=== PATIENT | male | born 1955 | race Caucasian/White ===

== ENCOUNTER 2022-04-22 08:30 | Observation (INO) | payer MEDICARE ==
[2022-04-22] MEDS: Sodium Chloride 0.9% 1000 ML 1,000 ML IV SCH ×2 (08:58→15:14)
[2022-04-22 09:12] LABS: Absolute Neutrophil Ct (ANC) 7.47 x10^3/uL (1.4-6.9); Basophil (Absolute #) 0.04 x10^3/uL (0-0.4); Eosinophil % 0.8 % (0.00-5.0); Eosinophil (Absolute #) 0.08 x10^3/uL (0-0.5); Hematocrit 44.9 % (42-50); Hemoglobin 14.5 g/dL (12.5-18.0); Lymphocyte (Absolute #) 1.65 x10^3/uL (1.0-4.6); Lymphocytes % 16.5 % (24.0-44.0); Mean Cell Volume 95.1 fL (78-100); Mean Corpuscular Hemoglobin 30.7 pg (26-32); Mean Corpuscular Hgb Concent. 32.3 g/dL (32-36); Mean Platelet Volume 8.5 fL (7.5-11.0); Monocyte (Absolute #) 0.66 x10^3/uL (0.0-1.3); Monocytes % 6.6 % (0.0-12.0); Neutrophil % 74.8 % (36.0-66.0); Platelet Count 302 x10^3/uL (150-450); Red Blood Count 4.72 x10^6/uL (4.1-5.6); Red Cell Distribution Width 13.1 % (11.5-14.0)
[2022-04-22 09:22] LABS: D-DIMER QUANTITATIVE 0.3 mg/L (0.0-0.50); INR 4.48 (0.8-3.0); PROTIME 41.4 SECONDS (9.4-12.5); PTT 40.5 SECONDS (25.1-36.5)
[2022-04-22 09:31] LABS: NT PRO BNP 61.7 pg/mL (0-900)
[2022-04-22 09:35] LABS: ALBUMIN 3.7 g/dL (3.5-5.0); ALKALINE PHOSPHATASE 116 U/L (38-126); BLOOD UREA NITROGEN 19 mg/dL (9-20); CHLORIDE 103 mmol/L (98-107); Calcium 8.3 mg/dL (8.4-10.2); Carbon Dioxide 29 mmol/L (22-30); Creatinine 1 0.84 mg/dL (0.66-1.25); EST GLOMERULAR FILTRATION RATE > 60.0 ML/MIN; Glucose 99 mg/dL (74-106); Potassium 3.6 mmol/L (3.5-5.1); SGOT/AST 45 U/L (17-59); SGPT/ALT 39 U/L (0-50); SODIUM 137 mmol/L (137-145); Total Protein 6.7 g/dL (6.3-8.2)
[2022-04-22 09:38] LABS: ANION GAP 8.6 MEQ/L (5-15)
[2022-04-22 10:29] LABS: INFLUENZA A NEGATIVE (NEGATIVE); INFLUENZA B NEGATIVE (NEGATIVE); RESPIRATORY SYNCTIAL VIRUS NEGATIVE (Negative); SARS-CoV-2 Xpert Express NEGATIVE (NEGATIVE)
[2022-04-22 10:30] LABS: CK-Creatinine Phosphokinase 110 U/L (55-170)
--- NOTE | 2022-04-22 10:33 | XRAY ---
Indication: Pleuritic chest pain and productive cough 3 weeks. Short of breath. Multiple contiguous axial images obtained through the chest using 100 cc Isovue 370 contrast and PE protocol. Comparison: None Good opacification of the pulmonary arteries to include the lobar and segmental branches. No pulmonary embolus. Heart is not enlarged. Aorta minimally arteriosclerotic without aneurysm/dissection. Tiny subcarinal and left hilar calcified nodes. Lungs demonstrate right middle and right lower lobe infiltrates/atelectasis. 1 cm left costophrenic angle calcified granuloma. Upper lungs clear. Bony thorax intact with osteopenia and moderate degenerative changes throughout the spine. Limited upper abdomen demonstrates gastric bypass surgery. Impression: 1. Negative pulmonary embolus. 2. Right middle and right lower lobe infiltrates/atelectasis. 3. Incidental degenerative spondylosis, gastric bypass surgery, and old granulomatous disease.
--- NOTE | 2022-04-22 10:58 | ERPHSYRPT ---
- History of Present Illness Time Seen by Provider: 04/22/22 08:45 Historian: patient Exam Limitations: no limitations Patient Subjective Stated Complaint: PT HERE FOR SOB AND PAIN WITH A COUGH FOR 3 WEEKS NOW, HE STATES HE FELL ON RIGHT SIDE 5 WEEKS AGO ON A MOWER, ANS WAS NOT SEEN AT THAT TIME. WAS SEEN 2 WEEKS AGO AT [facility] AND LAST WEEK AT [facility] AND STATES HE IS NOT FEELING BETTER Triage Nursing Assessment: PT ALERT, WALKED IN, RESP EASY, CHEST WITH SCATTERED WHEEZES , HAS CONGESTED COUGH WITH DEEP BREATH,PRODUCTIVE COUGH WITH WHITE SPUTUM Physician History: Patient is a 67-year-old white male who presents with a complaint of shortness of breath and right-sided chest pain he is also had a very loose sounding cough producing copious amounts of white sputum. He fell approximately 5 weeks ago on a trailer hitch causing pain into the right chest since that time he has had increasing episodes of shortness of breath is been seen in the ER for 3 Mondays in a row. He was seen at the [place] [facility] on last Friday or 2 weeks ago and had blood test x-ray and eventually had a CT scan of the abdomen without contrast. He has severe cough and soreness to touch on the right chest. Timing/Duration: week(s) (5) Activities at Onset: none Quality: stabbing, throbbing Severity of Pain-Max: severe Severity of Pain-Current: moderate Modifying Factors: Improves With: breathing, coughing, palpation, change in position Associated Symptoms: shortness of breath, cough, hurts to breathe Prior Chest Pain/Cardiac Workup: pulmonary embolism Nitro Today/Relief: no nitro taken today Aspirin Treatment Today: no aspirin today Allergies/Adverse Reactions: Penicillins Allergy (Verified 04/22/22 08:56) Home Medications: Lisinopril 10 mg [Zestril 10 MG] 10 mg PO DAILY 04/22/22 [History] Prednisone [Lalito] 5 mg PO DAILY 04/22/22 [History] Warfarin Sodium 5 mg [Jantoven] 1 ea DAILY 04/22/22 [History] Hx Influenza Vaccination/Date Given: No Hx Pneumococcal Vaccination/Date Given: No Immunizations Up to Date: Yes Travel Risk - International Travel Have you traveled outside of the country in past 3 weeks: No - Coronavirus Screening Are you exhibiting any of the following symptoms?: No Close contact with a COVID-19 positive Pt in past 14-21 Days: No - Vaccine Status Have you recieved a Covid-19 vaccination: Yes [employer]: Moderna - Vaccination Dates Date of 2cond Vaccination (if applicable): 2020 - Review of Systems Constitutional: No Fever, No Chills Eyes: No Symptoms Ears, Nose, & Throat: No Symptoms Respiratory: Cough, Dyspnea Cardiac: Chest Pain, No Edema, No Syncope Abdominal/Gastrointestinal: No Abdominal Pain, No Nausea, No Vomiting, No Diarrhea Genitourinary Symptoms: No Dysuria Musculoskeletal: No Back Pain, No Neck Pain Skin: No Rash Neurological: No Dizziness, No Focal Weakness, No Sensory Changes Psychological: No Symptoms Endocrine: No Symptoms All Other Systems: Reviewed and Negative - Past Medical History Pertinent Past Medical History: Yes Cardiac History: Deep Vein Thrombosis, High Cholesterol - Past Surgical History Past Surgical History: Yes Other Surgical History: GASTRIC BYPASS - Social History Smoking Status: Never smoker Exposure to second hand smoke: No Drug Use: none Patient Lives Alone: No - Nursing Vital Signs Nursing Vital Signs: Initial Vital Signs Temperature 97.4 F 04/22/22 08:39 Pulse Rate 93 H 04/22/22 08:39 Respiratory Rate 16 04/22/22 08:39 Blood Pressure 145/87 04/22/22 08:39 O2 Sat by Pulse Oximetry 97 04/22/22 08:39 Pain Scale Pain Intensity 0 - Physical Exam General Appearance: mild distress, alert Eye Exam: PERRL/EOMI, eyes nml inspection Ears, Nose, Throat Exam: normal ENT inspection, moist mucous membranes Neck Exam: normal inspection, non-tender, supple, full range of motion Respiratory Exam: respiratory distress (Mild), diminished breath sounds (Right lower anterior and posterior chest), crackles/rales, rhonchi, wheezing Cardiovascular Exam: regular rate/rhythm, normal heart sounds Gastrointestinal/Abdomen Exam: soft, No tenderness, No mass Back Exam: normal inspection, No CVA tenderness, No vertebral tenderness Extremity Exam: normal inspection, normal range of motion Neurologic Exam: alert, oriented x 3, cooperative, normal mood/affect, sensation nml, No motor deficits Skin Exam: normal color, warm, dry SpO2 Interpretation: normal SpO2: 92 O2 Delivery: Room Air - Course Nursing assessment & vital signs reviewed: Yes EKG Interpreted by Me: RATE (74), Sinus Rhythm, Left [place] Deviation, NORMAL INTERVALS, NORMAL QRS, Non-specific ST Changes - CT Exams Chest CT Interpretation: Other (CT scan from the radiologist indicates right middle lobe and right lower lobe infiltrates.) Ordered Tests: Active Orders 24 hr Category Date Time Status Solvent Plant Treater STAT Care 04/22/22 08:41 Active EKG-ER Only STAT Care 04/22/22 08:40 Active CHEST WITH CONTRAST [CT] Stat Exams 04/22/22 10:02 Completed BLOOD CULTURE Stat Lab 04/22/22 09:00 Received CBC W DIFF Stat Lab 04/22/22 08:48 Completed CK-Creatinine Phosphokinase Stat Lab 04/22/22 08:48 Completed CMP Stat Lab 04/22/22 08:48 Completed CULTURE,SPUTUM Stat Lab 04/22/22 10:54 Ordered D-DIMER QUANTITATIVE Stat Lab 04/22/22 08:48 Completed Lactic Acid Stat Lab 04/22/22 08:50 Completed NT PRO BNP Stat Lab 04/22/22 08:48 Completed PROCALCITONIN Stat Lab 04/22/22 08:48 Completed PROTIME WITH INR Stat Lab 04/22/22 08:48 Completed PTT Stat Lab 04/22/22 08:48 Completed TROPONIN Q4H Lab 04/22/22 08:48 Completed TROPONIN Q4H Lab 04/22/22 12:45 Ordered TROPONIN Q4H Lab 04/22/22 16:45 Ordered UA W/RFX CULTURE Stat Lab 04/22/22 Ordered Flutter Therapy UD RT 04/22/22 10:59 Active Incentive Spirometry UD RT 04/22/22 11:00 Active Medication Summary Generic Name Dose Route Start Last Admin Trade Name Freq PRN Reason Stop Dose Admin Sodium Chloride 1,000 mls @ 100 mls/hr 04/22/22 08:45 04/22/22 08:58 Sodium Chloride 0.9% 1000 Ml IV 05/22/22 08:44 100 mls/hr .Q10H ROMERO Administration Azithromycin 500 mg in 250 mls @ 250 mls/hr 04/23/22 10:00 Zithromax 500 Mg/ 250 Ml Nacl Premix IV 05/23/22 09:59 Q24H10 ROMERO Ceftriaxone Sodium/Dextrose 1 g in 50 mls @ 100 mls/hr 04/23/22 10:00 Rocephin 1 Gm-D5w 50 Ml Bag IV 04/26/22 09:59 Q24H10 [facility] Lab/Rad Data: Laboratory Result Diagrams 04/22/22 08:48 04/22/22 08:48 Laboratory Results 04/22/22 04/22/22 04/22/22 Range/Units 08:50 08:48 08:48 WBC (4.0-10.5) x10^3/uL RBC (4.1-5.6) x10^6/uL Hgb (12.5-18.0) g/dL Hct (42-50) % MCV (78-100) fL MCH (26-32) pg MCHC (32-36) g/dL RDW (11.5-14.0) % Plt Count (150-450) x10^3/uL MPV (7.5-11.0) fL Gran % (36.0-66.0) % Immature Gran % (Auto) (0.00-0.4) % Nucleat RBC Rel Count (0.00-0.1) % Eos # (Auto) (0-0.5) x10^3/uL Immature Gran # (Auto) (0.00-0.03) x10^3u/L Absolute Lymphs (auto) (1.0-4.6) x10^3/uL Absolute Monos (auto) (0.0-1.3) x10^3/uL Absolute Nucleated RBC (0.00-0.01) x10^3u/L Lymphocytes % (24.0-44.0) % Monocytes % (0.0-12.0) % Eosinophils % (0.00-5.0) % Basophils % (0.0-0.4) % Absolute Granulocytes (1.4-6.9) x10^3/uL Basophils # (0-0.4) x10^3/uL PT (9.4-12.5) SECONDS INR (0.8-3.0) APTT (25.1-36.5) SECONDS D-Dimer (0.0-0.50) mg/L Sodium (137-145) mmol/L Potassium (3.5-5.1) mmol/L Chloride (98-107) mmol/L Carbon Dioxide (22-30) mmol/L Anion Gap (5-15) MEQ/L BUN (9-20) mg/dL Creatinine (0.66-1.25) mg/dL Estimated GFR ML/MIN Glucose (74-106) mg/dL Lactic Acid 1.6 (0.4-2.0) Calcium (8.4-10.2) mg/dL Total Bilirubin (0.2-1.3) mg/dL AST (17-59) U/L ALT (0-50) U/L Alkaline Phosphatase (38-126) U/L Creatine Kinase (55-170) U/L Troponin I < 0.012 (0.000-0.034) ng/mL NT-Pro-B Natriuret Pep (0-900) pg/mL Serum Total Protein (6.3-8.2) g/dL Albumin (3.5-5.0) g/dL Procalcitonin 0.053 (0.030-0.080) ng/mL 04/22/22 04/22/22 04/22/22 Range/Units 08:48 08:48 08:48 WBC 10.0 (4.0-10.5) x10^3/uL RBC 4.72 (4.1-5.6) x10^6/uL Hgb 14.5 (12.5-18.0) g/dL Hct 44.9 (42-50) % MCV 95.1 (78-100) fL MCH 30.7 (26-32) pg MCHC 32.3 (32-36) g/dL RDW 13.1 (11.5-14.0) % Plt Count 302 (150-450) x10^3/uL MPV 8.5 (7.5-11.0) fL Gran % 74.8 H (36.0-66.0) % Immature Gran % (Auto) 0.9 H (0.00-0.4) % Nucleat RBC Rel Count 0.0 (0.00-0.1) % Eos # (Auto) 0.08 (0-0.5) x10^3/uL Immature Gran # (Auto) 0.09 H (0.00-0.03) x10^3u/L Absolute Lymphs (auto) 1.65 (1.0-4.6) x10^3/uL Absolute Monos (auto) 0.66 (0.0-1.3) x10^3/uL Absolute Nucleated RBC 0.00 (0.00-0.01) x10^3u/L Lymphocytes % 16.5 L (24.0-44.0) % Monocytes % 6.6 (0.0-12.0) % Eosinophils % 0.8 (0.00-5.0) % Basophils % 0.4 (0.0-0.4) % Absolute Granulocytes 7.47 H (1.4-6.9) x10^3/uL Basophils # 0.04 (0-0.4) x10^3/uL PT 41.4 H (9.4-12.5) SECONDS INR 4.48 H (0.8-3.0) APTT 40.5 H (25.1-36.5) SECONDS D-Dimer 0.30 (0.0-0.50) mg/L Sodium 137 (137-145) mmol/L Potassium 3.6 (3.5-5.1) mmol/L Chloride 103 (98-107) mmol/L Carbon Dioxide 29 (22-30) mmol/L Anion Gap 8.6 (5-15) MEQ/L BUN 19 (9-20) mg/dL Creatinine 0.84 (0.66-1.25) mg/dL Estimated GFR > 60.0 ML/MIN Glucose 99 (74-106) mg/dL Lactic Acid (0.4-2.0) Calcium 8.3 L (8.4-10.2) mg/dL Total Bilirubin 0.80 (0.2-1.3) mg/dL AST 45 (17-59) U/L ALT 39 (0-50) U/L Alkaline Phosphatase 116 (38-126) U/L Creatine Kinase 110 (55-170) U/L Troponin I (0.000-0.034) ng/mL NT-Pro-B Natriuret Pep 61.7 (0-900) pg/mL Serum Total Protein 6.7 (6.3-8.2) g/dL Albumin 3.7 (3.5-5.0) g/dL Procalcitonin (0.030-0.080) ng/mL - Progress Progress: unchanged Air Movement: good Blood Culture(s) Obtained: Yes Antibiotics given: Yes Discussed with : Aurelio - Departure Departure Disposition: Observation Clinical Impression: Right middle lobe pulmonary infiltrate, Right lower lobe pulmonary infiltrate Condition: Fair Critical Care Time: No Referrals: JOVITA MEMBRENO Jr. [Primary Care Provider] - Follow up/PCP as directed
[2022-04-22] MEDS ORDERED: PERCOCET TABLET 5/325MG PO PRN (11:12)
[2022-04-22] MEDS ORDERED: ROCEPHIN 1 Gm-D5w 50 ml Bag** 1 G/50 ML IVPB IV ONE (11:14)
[2022-04-22] MEDS ORDERED: ROCEPHIN 1 Gm-D5w 50 ml Bag** 1 G/50 ML IVPB IV STA (11:14)
[2022-04-22] MEDS ORDERED: Zithromax 500 MG/ 250 ML NaCl Premix 500 MG/250 ML IVPB IV ONE ×2 (11:15)
[2022-04-22 11:25] LABS: Appearance CLEAR (CLEAR); Bilirubin NEGATIVE (NEGATIVE); Dipstick done @ ? MAIN LAB; Glucose NEGATIVE (NEGATIVE); Ketones NEGATIVE (NEGATIVE); Nitrite NEGATIVE (NEGATIVE); Ph 6.5 (5-6); Protein,Urine Dip NEGATIVE (Negative); RBC NEGATIVE Ery/ul (0-5); Specific Gravity 1.025 (1.005-1.025); Urobilinogen 1 mg/dL (0-1)
[2022-04-22 11:35] LABS: Mucus SLIGHT /HPF (NEGATIVE)
[2022-04-22 11:39] LABS: Urine Cultured Indicated? NO
[2022-04-22] MEDS ORDERED: PROVENTIL 2.5 MG/3 ML NEB IH PRN (12:48)
[2022-04-22] MEDS ORDERED: TYLENOL 325 MG PO PRN (13:51)
[2022-04-22] MEDS ORDERED: HUMALOG SQ PRN (13:52)
[2022-04-22] MEDS ORDERED: PROVENTIL 2.5 MG/3 ML NEB IH SCH (15:00)
[2022-04-22] MEDS: solu-MEDROL 80 MG, Sterile H2O 10 ml 2 ML IV SCH ×4 (15:14→21:04)
[2022-04-22] MEDS: Nicoderm CQ 21 MG TOP SCH (15:14)
[2022-04-22] MEDS: Mucinex 600MG ER Tabs PO SCH ×2 (15:15→21:04)
[2022-04-22] MEDS ORDERED: JANTOVEN PO SCH (18:00)
[2022-04-23] MEDS ORDERED: solu-MEDROL ONE (04:13)
[2022-04-23] MEDS: solu-MEDROL 80 MG, Sterile H2O 10 ml 2 ML IV SCH ×6 (05:05→23:48)
[2022-04-23 05:09] LABS: Hemoglobin 13.6 g/dL (12.5-18.0); Mean Cell Volume 94.4 fL (78-100); Mean Corpuscular Hemoglobin 30.6 pg (26-32); Mean Corpuscular Hgb Concent. 32.4 g/dL (32-36); Mean Platelet Volume 8.8 fL (7.5-11.0); Platelet Count 286 x10^3/uL (150-450); Red Blood Count 4.45 x10^6/uL (4.1-5.6); White Blood Count 9.3 x10^3/uL (4.0-10.5)
[2022-04-23 05:32] LABS: ALBUMIN 3.1 g/dL (3.5-5.0); ALKALINE PHOSPHATASE 101 U/L (38-126); ANION GAP 7.3 MEQ/L (5-15); BLOOD UREA NITROGEN 16 mg/dL (9-20); CHLORIDE 108 mmol/L (98-107); Calcium 7.9 mg/dL (8.4-10.2); Carbon Dioxide 24 mmol/L (22-30); Creatinine 1 0.58 mg/dL (0.66-1.25); EST GLOMERULAR FILTRATION RATE > 60.0 ML/MIN; Glucose 141 mg/dL (74-106); MAGNESIUM 2.1 mg/dL (1.6-2.3); SGOT/AST 24 U/L (17-59); SGPT/ALT 31 U/L (0-50); SODIUM 135 mmol/L (137-145); Total Protein 5.8 g/dL (6.3-8.2)
[2022-04-23 05:38] LABS: INR 3.93 (0.8-3.0); PROTIME 36.8 SECONDS (9.4-12.5)
--- NOTE | 2022-04-23 09:13 | PCM.HP ---
History of Present Illness - Chief Complaint Chief Complaint: PNEUMONIA History of Present Illness: is a 67 year old male patient of Dr Randall Wood who was evaluated in ER for cough and shortness of breath and diagnosed right sided pneumonia. Patient gives a Hx of tripping on hydrallic hose and falling on his koehler hog 3 weeks ago contusing his left rib cage.He was evaluated at least twice at other facility and reported no fracture or cardiac issue. He is admitted for treatment of pneumonia. PMHx includes HTN,Hx DVT,Arthritis S/P bilateral knee replacement,S/P bariatric surgery. - Review of Systems Constitutional: Fatigue Eyes: No Symptoms Ears, Nose, & Throat: No Symptoms Respiratory: Cough, Short Of Breath, Wheezing Cardiac: No Symptoms, Other (has left chest wall pain x 3 weeks since fall) Abdominal/Gastrointestinal: No Symptoms Genitourinary Symptoms: No Symptoms Musculoskeletal: Back Pain (left lateral lower rib cage pain), Fall (3 weeks ago) Skin: No Symptoms Neurological: No Symptoms Psychological: No Symptoms Endocrine: No Symptoms Hematologic/Lymphatic: No Symptoms Immunological/Allergic: No Symptoms Medications & Allergies Home Medications: Home Medication List Lisinopril 10 mg [Zestril 10 MG] 10 mg PO DAILY 04/22/22 [History Confirmed 04/22/22] Prednisone [Lalito] 10 mg PO DAILY 04/22/22 [History Confirmed 04/22/22] Warfarin Sodium 5 mg [Jantoven] 1 ea PO DAILY 04/22/22 [History Confirmed 04/22/22] Amox Tr/Potass Clav. 875 mg [Augmentin 875-125 Tablet] 875 mg PO BID 10 Days #20 tablet 04/24/22 [Rx] Azithromycin [Azithromycin 250 mg Pack] 250 mg PO UD #6 tablet 04/24/22 [Rx] Allergies/Adverse Reactions: Allergies Allergy/AdvReac Type Severity Reaction Status Date / Time Penicillins Allergy Verified 04/22/22 08:56 - Past Medical History Past Medical History: Yes Neurological History: No Pertinent History ENT History: No Pertinent History Cardiac History: Deep Vein Thrombosis, Hypertension Respiratory History: No Pertinent History Endocrine Medical History: No Pertinent History Musculoskelatal History: No Pertinent History GI Medical History: No Pertinent History History: No Pertinent History Pyscho-Social History: No Pertinent History Male Reproductive Disorders: No Pertinent History - Past Surgical History Past Surgical History: Yes Neuro Surgical History: No Pertinent History Cardiac History: No Pertinent History Respiratory Surgery: No Pertinent History GI Surgical History: No Pertinent History Genitourinary Surgical Hx: No Pertinent History Musculskeletal Surgical Hx: No Pertinent History Male Surgical History: No Pertinent History Other Surgical History: GASTRIC BYPASS IN 2004. BILATERAL KNEE REPLACEMENT IN 2005 - Social History Smoking Status: Never smoker Exposure to second hand smoke: No Alcohol: Weekly Drug Use: none - Physical Exam Vital Signs: Vital Signs - 24 hr Temp Pulse Resp BP Pulse Ox 04/23/22 07:39 97.9 F 62 16 100/51 96 04/23/22 06:45 61 16 94 L 04/23/22 04:00 96.7 F 57 L 16 135/65 95 04/23/22 00:00 97.3 F 69 16 126/70 90 L 04/22/22 20:09 83 18 93 L 04/22/22 19:00 97.3 F 93 H 17 104/56 93 L 04/22/22 16:00 98.1 F 66 16 134/67 96 04/22/22 12:49 65 16 96 04/22/22 12:18 98.0 F 68 16 150/80 94 L 04/22/22 12:12 98.0 F 68 16 150/80 94 L 04/22/22 11:06 98.0 F 68 16 150/80 94 L 04/22/22 11:05 92 L 04/22/22 11:03 63 13 137/64 95 04/22/22 10:37 74 20 137/64 92 L General Appearance: no apparent distress Neurologic Exam: alert, oriented x 3, cooperative (grouchy) Eye Exam: eyes nml inspection Ears, Nose, Throat Exam: normal ENT inspection Neck Exam: normal inspection Respiratory Exam: chest tenderness (left lateral rib cage), rhonchi, wheezing Cardiovascular Exam: regular rate/rhythm Gastrointestinal/Abdomen Exam: soft, normal bowel sounds (nontender) Rectal Exam: not done Back Exam: normal inspection Extremity Exam: normal inspection (scars bilat knees S/P knee replacement - remote) Skin Exam: normal color, warm, No dry Results - Labs Lab/Micro Results: Lab Results-Last 24 Hours 04/22/22 04/22/22 04/22/22 Range/Units 08:48 08:48 08:48 WBC 10.0 (4.0-10.5) x10^3/uL RBC 4.72 (4.1-5.6) x10^6/uL Hgb 14.5 (12.5-18.0) g/dL Hct 44.9 (42-50) % MCV 95.1 (78-100) fL MCH 30.7 (26-32) pg MCHC 32.3 (32-36) g/dL RDW 13.1 (11.5-14.0) % Plt Count 302 (150-450) x10^3/uL MPV 8.5 (7.5-11.0) fL Gran % 74.8 H (36.0-66.0) % Immature Gran % (Auto) 0.9 H (0.00-0.4) % Nucleat RBC Rel Count 0.0 (0.00-0.1) % Eos # (Auto) 0.08 (0-0.5) x10^3/uL Immature Gran # (Auto) 0.09 H (0.00-0.03) x10^3u/L Absolute Lymphs (auto) 1.65 (1.0-4.6) x10^3/uL Absolute Monos (auto) 0.66 (0.0-1.3) x10^3/uL Absolute Nucleated RBC 0.00 (0.00-0.01) x10^3u/L Lymphocytes % 16.5 L (24.0-44.0) % Monocytes % 6.6 (0.0-12.0) % Eosinophils % 0.8 (0.00-5.0) % Basophils % 0.4 (0.0-0.4) % Absolute Granulocytes 7.47 H (1.4-6.9) x10^3/uL Basophils # 0.04 (0-0.4) x10^3/uL PT 41.4 H (9.4-12.5) SECONDS INR 4.48 H (0.8-3.0) APTT 40.5 H (25.1-36.5) SECONDS D-Dimer 0.30 (0.0-0.50) mg/L Sodium 137 (137-145) mmol/L Potassium 3.6 (3.5-5.1) mmol/L Chloride 103 (98-107) mmol/L Carbon Dioxide 29 (22-30) mmol/L Anion Gap 8.6 (5-15) MEQ/L BUN 19 (9-20) mg/dL Creatinine 0.84 (0.66-1.25) mg/dL Estimated GFR > 60.0 ML/MIN Glucose 99 (74-106) mg/dL POC Glucometer (74 to 106) mg/dL Hemoglobin A1c (4.5-6.0) % Calcium 8.3 L (8.4-10.2) mg/dL Magnesium (1.6-2.3) mg/dL Total Bilirubin 0.80 (0.2-1.3) mg/dL AST 45 (17-59) U/L ALT 39 (0-50) U/L Alkaline Phosphatase 116 (38-126) U/L Creatine Kinase 110 (55-170) U/L Troponin I (0.000-0.034) ng/mL NT-Pro-B Natriuret Pep 61.7 (0-900) pg/mL Serum Total Protein 6.7 (6.3-8.2) g/dL Albumin 3.7 (3.5-5.0) g/dL Procalcitonin (0.030-0.080) ng/mL Urinalys Dipstick Clnc Urine Color (YELLOW) Urine Appearance (CLEAR) Urine pH (5-6) Ur Specific [place] (1.005-1.025) POC Urine Protein Conf (Negative) Urine Ketones (NEGATIVE) Urine Nitrite (NEGATIVE) Urine Bilirubin (NEGATIVE) Urine Urobilinogen (0-1) mg/dL Urine Leukocytes (NEGATIVE) Urine WBC (Auto) (0-5) /HPF Urine RBC (Auto) (0-2) /HPF U Epithel Cells (Auto) (FEW) /HPF Urine Bacteria (Auto) Urine RBC (0-5) Kamari/ul Urine Mucus (Auto) (NEGATIVE) /HPF Ur Culture Indicated? Urine Glucose (NEGATIVE) mg/dL Influenza Type A Ag (NEGATIVE) Influenza Type B Ag (NEGATIVE) RSV (PCR) (Negative) SARS-CoV-2 (PCR) (NEGATIVE) 04/22/22 04/22/22 04/22/22 Range/Units 08:48 08:48 09:42 WBC (4.0-10.5) x10^3/uL RBC (4.1-5.6) x10^6/uL Hgb (12.5-18.0) g/dL Hct (42-50) % MCV (78-100) fL MCH (26-32) pg MCHC (32-36) g/dL RDW (11.5-14.0) % Plt Count (150-450) x10^3/uL MPV (7.5-11.0) fL Gran % (36.0-66.0) % Immature Gran % (Auto) (0.00-0.4) % Nucleat RBC Rel Count (0.00-0.1) % Eos # (Auto) (0-0.5) x10^3/uL Immature Gran # (Auto) (0.00-0.03) x10^3u/L Absolute Lymphs (auto) (1.0-4.6) x10^3/uL Absolute Monos (auto) (0.0-1.3) x10^3/uL Absolute Nucleated RBC (0.00-0.01) x10^3u/L Lymphocytes % (24.0-44.0) % Monocytes % (0.0-12.0) % Eosinophils % (0.00-5.0) % Basophils % (0.0-0.4) % Absolute Granulocytes (1.4-6.9) x10^3/uL Basophils # (0-0.4) x10^3/uL PT (9.4-12.5) SECONDS INR (0.8-3.0) APTT (25.1-36.5) SECONDS D-Dimer (0.0-0.50) mg/L Sodium (137-145) mmol/L Potassium (3.5-5.1) mmol/L Chloride (98-107) mmol/L Carbon Dioxide (22-30) mmol/L Anion Gap (5-15) MEQ/L BUN (9-20) mg/dL Creatinine (0.66-1.25) mg/dL Estimated GFR ML/MIN Glucose (74-106) mg/dL POC Glucometer (74 to 106) mg/dL Hemoglobin A1c (4.5-6.0) % Calcium (8.4-10.2) mg/dL Magnesium (1.6-2.3) mg/dL Total Bilirubin (0.2-1.3) mg/dL AST (17-59) U/L ALT (0-50) U/L Alkaline Phosphatase (38-126) U/L Creatine Kinase (55-170) U/L Troponin I < 0.012 (0.000-0.034) ng/mL NT-Pro-B Natriuret Pep (0-900) pg/mL Serum Total Protein (6.3-8.2) g/dL Albumin (3.5-5.0) g/dL Procalcitonin 0.053 (0.030-0.080) ng/mL Urinalys Dipstick Clnc Urine Color (YELLOW) Urine Appearance (CLEAR) Urine pH (5-6) Ur Specific [place] (1.005-1.025) POC Urine Protein Conf (Negative) Urine Ketones (NEGATIVE) Urine Nitrite (NEGATIVE) Urine Bilirubin (NEGATIVE) Urine Urobilinogen (0-1) mg/dL Urine Leukocytes (NEGATIVE) Urine WBC (Auto) (0-5) /HPF Urine RBC (Auto) (0-2) /HPF U Epithel Cells (Auto) (FEW) /HPF Urine Bacteria (Auto) Urine RBC (0-5) Kamari/ul Urine Mucus (Auto) (NEGATIVE) /HPF Ur Culture Indicated? Urine Glucose (NEGATIVE) mg/dL Influenza Type A Ag NEGATIVE (NEGATIVE) Influenza Type B Ag NEGATIVE (NEGATIVE) RSV (PCR) NEGATIVE (Negative) SARS-CoV-2 (PCR) NEGATIVE (NEGATIVE) 04/22/22 04/22/22 04/22/22 Range/Units 11:18 12:45 16:10 WBC (4.0-10.5) x10^3/uL RBC (4.1-5.6) x10^6/uL Hgb (12.5-18.0) g/dL Hct (42-50) % MCV (78-100) fL MCH (26-32) pg MCHC (32-36) g/dL RDW (11.5-14.0) % Plt Count (150-450) x10^3/uL MPV (7.5-11.0) fL Gran % (36.0-66.0) % Immature Gran % (Auto) (0.00-0.4) % Nucleat RBC Rel Count (0.00-0.1) % Eos # (Auto) (0-0.5) x10^3/uL Immature Gran # (Auto) (0.00-0.03) x10^3u/L Absolute Lymphs (auto) (1.0-4.6) x10^3/uL Absolute Monos (auto) (0.0-1.3) x10^3/uL Absolute Nucleated RBC (0.00-0.01) x10^3u/L Lymphocytes % (24.0-44.0) % Monocytes % (0.0-12.0) % Eosinophils % (0.00-5.0) % Basophils % (0.0-0.4) % Absolute Granulocytes (1.4-6.9) x10^3/uL Basophils # (0-0.4) x10^3/uL PT (9.4-12.5) SECONDS INR (0.8-3.0) APTT (25.1-36.5) SECONDS D-Dimer (0.0-0.50) mg/L Sodium (137-145) mmol/L Potassium (3.5-5.1) mmol/L Chloride (98-107) mmol/L Carbon Dioxide (22-30) mmol/L Anion Gap (5-15) MEQ/L BUN (9-20) mg/dL Creatinine (0.66-1.25) mg/dL Estimated GFR ML/MIN Glucose (74-106) mg/dL POC Glucometer (74 to 106) mg/dL Hemoglobin A1c (4.5-6.0) % Calcium (8.4-10.2) mg/dL Magnesium (1.6-2.3) mg/dL Total Bilirubin (0.2-1.3) mg/dL AST (17-59) U/L ALT (0-50) U/L Alkaline Phosphatase (38-126) U/L Creatine Kinase (55-170) U/L Troponin I < 0.012 < 0.012 (0.000-0.034) ng/mL NT-Pro-B Natriuret Pep (0-900) pg/mL Serum Total Protein (6.3-8.2) g/dL Albumin (3.5-5.0) g/dL Procalcitonin (0.030-0.080) ng/mL Urinalys Dipstick Clnc MAIN LAB Urine Color YELLOW (YELLOW) Urine Appearance CLEAR (CLEAR) Urine pH 6.5 (5-6) Ur Specific [place] 1.025 (1.005-1.025) POC Urine Protein Conf NEGATIVE (Negative) Urine Ketones NEGATIVE (NEGATIVE) Urine Nitrite NEGATIVE (NEGATIVE) Urine Bilirubin NEGATIVE (NEGATIVE) Urine Urobilinogen 1 A (0-1) mg/dL Urine Leukocytes NEGATIVE (NEGATIVE) Urine WBC (Auto) NONE (0-5) /HPF Urine RBC (Auto) NONE (0-2) /HPF U Epithel Cells (Auto) NONE (FEW) /HPF Urine Bacteria (Auto) Not Reportable Urine RBC NEGATIVE (0-5) Kamari/ul Urine Mucus (Auto) SLIGHT A (NEGATIVE) /HPF Ur Culture Indicated? NO Urine Glucose NEGATIVE (NEGATIVE) mg/dL Influenza Type A Ag (NEGATIVE) Influenza Type B Ag (NEGATIVE) RSV (PCR) (Negative) SARS-CoV-2 (PCR) (NEGATIVE) 04/22/22 04/22/22 04/23/22 Range/Units 16:43 21:25 04:10 WBC 9.3 (4.0-10.5) x10^3/uL RBC 4.45 (4.1-5.6) x10^6/uL Hgb 13.6 (12.5-18.0) g/dL Hct 42.0 (42-50) % MCV 94.4 (78-100) fL MCH 30.6 (26-32) pg MCHC 32.4 (32-36) g/dL RDW 13.0 (11.5-14.0) % Plt Count 286 (150-450) x10^3/uL MPV 8.8 (7.5-11.0) fL Gran % (36.0-66.0) % Immature Gran % (Auto) (0.00-0.4) % Nucleat RBC Rel Count (0.00-0.1) % Eos # (Auto) (0-0.5) x10^3/uL Immature Gran # (Auto) (0.00-0.03) x10^3u/L Absolute Lymphs (auto) (1.0-4.6) x10^3/uL Absolute Monos (auto) (0.0-1.3) x10^3/uL Absolute Nucleated RBC (0.00-0.01) x10^3u/L Lymphocytes % (24.0-44.0) % Monocytes % (0.0-12.0) % Eosinophils % (0.00-5.0) % Basophils % (0.0-0.4) % Absolute Granulocytes (1.4-6.9) x10^3/uL Basophils # (0-0.4) x10^3/uL PT (9.4-12.5) SECONDS INR (0.8-3.0) APTT (25.1-36.5) SECONDS D-Dimer (0.0-0.50) mg/L Sodium (137-145) mmol/L Potassium (3.5-5.1) mmol/L Chloride (98-107) mmol/L Carbon Dioxide (22-30) mmol/L Anion Gap (5-15) MEQ/L BUN (9-20) mg/dL Creatinine (0.66-1.25) mg/dL Estimated GFR ML/MIN Glucose (74-106) mg/dL POC Glucometer 105 183 H (74 to 106) mg/dL Hemoglobin A1c (4.5-6.0) % Calcium (8.4-10.2) mg/dL Magnesium (1.6-2.3) mg/dL Total Bilirubin (0.2-1.3) mg/dL AST (17-59) U/L ALT (0-50) U/L Alkaline Phosphatase (38-126) U/L Creatine Kinase (55-170) U/L Troponin I (0.000-0.034) ng/mL NT-Pro-B Natriuret Pep (0-900) pg/mL Serum Total Protein (6.3-8.2) g/dL Albumin (3.5-5.0) g/dL Procalcitonin (0.030-0.080) ng/mL Urinalys Dipstick Clnc Urine Color (YELLOW) Urine Appearance (CLEAR) Urine pH (5-6) Ur Specific [place] (1.005-1.025) POC Urine Protein Conf (Negative) Urine Ketones (NEGATIVE) Urine Nitrite (NEGATIVE) Urine Bilirubin (NEGATIVE) Urine Urobilinogen (0-1) mg/dL Urine Leukocytes (NEGATIVE) Urine WBC (Auto) (0-5) /HPF Urine RBC (Auto) (0-2) /HPF U Epithel Cells (Auto) (FEW) /HPF Urine Bacteria (Auto) Urine RBC (0-5) Kamari/ul Urine Mucus (Auto) (NEGATIVE) /HPF Ur Culture Indicated? Urine Glucose (NEGATIVE) mg/dL Influenza Type A Ag (NEGATIVE) Influenza Type B Ag (NEGATIVE) RSV (PCR) (Negative) SARS-CoV-2 (PCR) (NEGATIVE) 04/23/22 04/23/22 04/23/22 Range/Units 04:10 04:10 04:10 WBC (4.0-10.5) x10^3/uL RBC (4.1-5.6) x10^6/uL Hgb (12.5-18.0) g/dL Hct (42-50) % MCV (78-100) fL MCH (26-32) pg MCHC (32-36) g/dL RDW (11.5-14.0) % Plt Count (150-450) x10^3/uL MPV (7.5-11.0) fL Gran % (36.0-66.0) % Immature Gran % (Auto) (0.00-0.4) % Nucleat RBC Rel Count (0.00-0.1) % Eos # (Auto) (0-0.5) x10^3/uL Immature Gran # (Auto) (0.00-0.03) x10^3u/L Absolute Lymphs (auto) (1.0-4.6) x10^3/uL Absolute Monos (auto) (0.0-1.3) x10^3/uL Absolute Nucleated RBC (0.00-0.01) x10^3u/L Lymphocytes % (24.0-44.0) % Monocytes % (0.0-12.0) % Eosinophils % (0.00-5.0) % Basophils % (0.0-0.4) % Absolute Granulocytes (1.4-6.9) x10^3/uL Basophils # (0-0.4) x10^3/uL PT 36.8 H (9.4-12.5) SECONDS INR 3.93 H (0.8-3.0) APTT (25.1-36.5) SECONDS D-Dimer (0.0-0.50) mg/L Sodium 135 L (137-145) mmol/L Potassium 4.0 (3.5-5.1) mmol/L Chloride 108 H (98-107) mmol/L Carbon Dioxide 24 (22-30) mmol/L Anion Gap 7.3 (5-15) MEQ/L BUN 16 (9-20) mg/dL Creatinine 0.58 L (0.66-1.25) mg/dL Estimated GFR > 60.0 ML/MIN Glucose 141 H (74-106) mg/dL POC Glucometer (74 to 106) mg/dL Hemoglobin A1c 5.39 (4.5-6.0) % Calcium 7.9 L (8.4-10.2) mg/dL Magnesium 2.1 (1.6-2.3) mg/dL Total Bilirubin 0.60 (0.2-1.3) mg/dL AST 24 (17-59) U/L ALT 31 (0-50) U/L Alkaline Phosphatase 101 (38-126) U/L Creatine Kinase (55-170) U/L Troponin I (0.000-0.034) ng/mL NT-Pro-B Natriuret Pep (0-900) pg/mL Serum Total Protein 5.8 L (6.3-8.2) g/dL Albumin 3.1 L (3.5-5.0) g/dL Procalcitonin (0.030-0.080) ng/mL Urinalys Dipstick Clnc Urine Color (YELLOW) Urine Appearance (CLEAR) Urine pH (5-6) Ur Specific [place] (1.005-1.025) POC Urine Protein Conf (Negative) Urine Ketones (NEGATIVE) Urine Nitrite (NEGATIVE) Urine Bilirubin (NEGATIVE) Urine Urobilinogen (0-1) mg/dL Urine Leukocytes (NEGATIVE) Urine WBC (Auto) (0-5) /HPF Urine RBC (Auto) (0-2) /HPF U Epithel Cells (Auto) (FEW) /HPF Urine Bacteria (Auto) Urine RBC (0-5) Kamari/ul Urine Mucus (Auto) (NEGATIVE) /HPF Ur Culture Indicated? Urine Glucose (NEGATIVE) mg/dL Influenza Type A Ag (NEGATIVE) Influenza Type B Ag (NEGATIVE) RSV (PCR) (Negative) SARS-CoV-2 (PCR) (NEGATIVE) 04/23/22 Range/Units 07:20 WBC (4.0-10.5) x10^3/uL RBC (4.1-5.6) x10^6/uL Hgb (12.5-18.0) g/dL Hct (42-50) % MCV (78-100) fL MCH (26-32) pg MCHC (32-36) g/dL RDW (11.5-14.0) % Plt Count (150-450) x10^3/uL MPV (7.5-11.0) fL Gran % (36.0-66.0) % Immature Gran % (Auto) (0.00-0.4) % Nucleat RBC Rel Count (0.00-0.1) % Eos # (Auto) (0-0.5) x10^3/uL Immature Gran # (Auto) (0.00-0.03) x10^3u/L Absolute Lymphs (auto) (1.0-4.6) x10^3/uL Absolute Monos (auto) (0.0-1.3) x10^3/uL Absolute Nucleated RBC (0.00-0.01) x10^3u/L Lymphocytes % (24.0-44.0) % Monocytes % (0.0-12.0) % Eosinophils % (0.00-5.0) % Basophils % (0.0-0.4) % Absolute Granulocytes (1.4-6.9) x10^3/uL Basophils # (0-0.4) x10^3/uL PT (9.4-12.5) SECONDS INR (0.8-3.0) APTT (25.1-36.5) SECONDS D-Dimer (0.0-0.50) mg/L Sodium (137-145) mmol/L Potassium (3.5-5.1) mmol/L Chloride (98-107) mmol/L Carbon Dioxide (22-30) mmol/L Anion Gap (5-15) MEQ/L BUN (9-20) mg/dL Creatinine (0.66-1.25) mg/dL Estimated GFR ML/MIN Glucose (74-106) mg/dL POC Glucometer 141 H (74 to 106) mg/dL Hemoglobin A1c (4.5-6.0) % Calcium (8.4-10.2) mg/dL Magnesium (1.6-2.3) mg/dL Total Bilirubin (0.2-1.3) mg/dL AST (17-59) U/L ALT (0-50) U/L Alkaline Phosphatase (38-126) U/L Creatine Kinase (55-170) U/L Troponin I (0.000-0.034) ng/mL NT-Pro-B Natriuret Pep (0-900) pg/mL Serum Total Protein (6.3-8.2) g/dL Albumin (3.5-5.0) g/dL Procalcitonin (0.030-0.080) ng/mL Urinalys Dipstick Clnc Urine Color (YELLOW) Urine Appearance (CLEAR) Urine pH (5-6) Ur Specific [place] (1.005-1.025) POC Urine Protein Conf (Negative) Urine Ketones (NEGATIVE) Urine Nitrite (NEGATIVE) Urine Bilirubin (NEGATIVE) Urine Urobilinogen (0-1) mg/dL Urine Leukocytes (NEGATIVE) Urine WBC (Auto) (0-5) /HPF Urine RBC (Auto) (0-2) /HPF U Epithel Cells (Auto) (FEW) /HPF Urine Bacteria (Auto) Urine RBC (0-5) Kamari/ul Urine Mucus (Auto) (NEGATIVE) /HPF Ur Culture Indicated? Urine Glucose (NEGATIVE) mg/dL Influenza Type A Ag (NEGATIVE) Influenza Type B Ag (NEGATIVE) RSV (PCR) (Negative) SARS-CoV-2 (PCR) (NEGATIVE) Microbiology 04/22/22 10:54 Gram Stain - Final Sputum - Expectorant Accuchecks Date 04/23/22 Date 04/22/22 Date 04/22/22 Time 07:38 Time 21:34 Time 16:46 - Radiology Impressions Radiology Exams & Impressions: Radiology Procedures Category Date Time Status CHEST WITH CONTRAST [CT] Stat Exams 04/22/22 10:02 Completed - Other Procedures and Tests Respiratory Therapy 04/22/22 12:48 Respiratory Therapy Assessment DAILY Assessment/Plan (1) Right lower lobe pulmonary infiltrate Status: Acute Assessment & Plan: IV antibiotics and steroids -see orders, Neb treatments RT following Code(s): R91.8 - OTHER NONSPECIFIC ABNORMAL FINDING OF LUNG FIELD (2) Right middle lobe pulmonary infiltrate Status: Acute Code(s): R91.8 - OTHER NONSPECIFIC ABNORMAL FINDING OF LUNG FIELD (3) H/O chest wall injury Status: Resolved Code(s): Z87.828 - PERSONAL HISTORY OF OTH (HEALED) PHYSICAL INJURY AND TRAUMA (4) HTN (hypertension) Status: Chronic Assessment & Plan: monitor Code(s): I10 - ESSENTIAL (PRIMARY) HYPERTENSION
[2022-04-23] MEDS: ROCEPHIN 1 Gm-D5w 50 ml Bag** 1 G/50 ML IVPB IV SCH (09:29)
[2022-04-23] MEDS: Zestril 10 MG PO SCH (09:32)
[2022-04-23] MEDS: Mucinex 600MG ER Tabs PO SCH ×2 (09:32→23:48)
[2022-04-23] MEDS: Nicoderm CQ 21 MG TOP SCH (09:32)
[2022-04-23] MEDS: Zithromax 500 MG/ 250 ML NaCl Premix 500 MG/250 ML IVPB IV SCH (09:37)
[2022-04-23] MEDS: Sodium Chloride 0.9% 1000 ML 1,000 ML IV SCH ×2 (11:30→20:41)
[2022-04-23] MEDS: PROVENTIL 2.5 MG/3 ML NEB IH SCH ×2 (13:12→18:54)
[2022-04-23] MEDS ORDERED: JANTOVEN PO SCH (18:00)
[2022-04-24] MEDS ORDERED: solu-MEDROL ONE ×2 (02:08→05:38)
[2022-04-24] MEDS: solu-MEDROL 80 MG, Sterile H2O 10 ml 2 ML IV SCH ×2 (05:41)
[2022-04-24 05:44] LABS: INR 3.52 (0.8-3.0); PROTIME 33.3 SECONDS (9.4-12.5)
[2022-04-24] MEDS: Sodium Chloride 0.9% 1000 ML 1,000 ML IV SCH (05:54)
[2022-04-24] MEDS: PROVENTIL 2.5 MG/3 ML NEB IH SCH (07:22)
[2022-04-24 07:35] VITALS: BP 150/75; PULSE 69; O2SAT 96
[2022-04-24] MEDS: Nicoderm CQ 21 MG TOP SCH ×2 (08:24→08:27)
[2022-04-24] MEDS: Mucinex 600MG ER Tabs PO SCH (08:24)
[2022-04-24] MEDS: ROCEPHIN 1 Gm-D5w 50 ml Bag** 1 G/50 ML IVPB IV SCH (08:24)
[2022-04-24] MEDS: Zestril 10 MG PO SCH (08:24)
[2022-04-24] MEDS: Zithromax 500 MG/ 250 ML NaCl Premix 500 MG/250 ML IVPB IV SCH (08:24)
== END 2022-04-24 09:12 | disposition home or self-care (01) ==
LOC: ED 08:30 → MED SURG 12:06
PROVIDERS: ADMIT Family Medicine; ATTEND Family Medicine
DX: J18.9 Pneumonia, unspecified organism (principal); I10 Essential (primary) hypertension; R07.9 Chest pain, unspecified; W18.30XA Fall on same level, unspecified, initial encounter; Z79.01 Long term (current) use of anticoagulants; Z79.899 Other long term (current) drug therapy; Z86.718 Personal history of other venous thrombosis and embolism
CPT/HCPCS: 0241U; 36415; 71260; 80053; 81015; 82550; 82947; 83036; 83605; 83735; 83880; 84145; 84484; 85025; 85027; 85379; 85610; 85730; 87040; 87070; 93005; 93041; 94640; 94667; 94760; 96365; 96367; 99284; G0378; J0456; J0696; J2930; J7609; A9270-GY

== ENCOUNTER 2023-03-03 13:27 | Emergency (ER) | payer MEDICARE ==
[2023-03-03 14:47] VITALS: RESP 16; TEMP 97.9
[2023-03-03 15:00] LABS: Hematocrit 42.3 % (42-50); Hemoglobin 13.3 g/dL (12.5-18.0); Mean Cell Volume 100.5 fL (78-100); Mean Corpuscular Hemoglobin 31.6 pg (26-32); Mean Corpuscular Hgb Concent. 31.4 g/dL (32-36); Mean Platelet Volume 8.6 fL (7.5-11.0); Platelet Count 212 x10^3/uL (150-450); Red Blood Count 4.21 x10^6/uL (4.1-5.6); Red Cell Distribution Width 13.4 % (11.5-14.0); White Blood Count 6.7 x10^3/uL (4.0-10.5)
[2023-03-03 15:05] VITALS: O2SAT 94
[2023-03-03 15:15] LABS: ALBUMIN 3.6 g/dL (3.5-5.0); ALKALINE PHOSPHATASE 83 U/L (38-126); ANION GAP 10.7 MEQ/L (5-15); BLOOD UREA NITROGEN 25 mg/dL (9-20); CHLORIDE 105 mmol/L (98-107); Calcium 8.4 mg/dL (8.4-10.2); Carbon Dioxide 26 mmol/L (22-30); Creatinine 1 0.95 mg/dL (0.66-1.25); EST GLOMERULAR FILTRATION RATE > 60.0 ML/MIN; Glucose 112 mg/dL (74-106); Potassium 4.1 mmol/L (3.5-5.1); SGOT/AST 31 U/L (17-59); SGPT/ALT 31 U/L (0-50); SODIUM 138 mmol/L (137-145); Total Protein 5.9 g/dL (6.3-8.2); Uric Acid 3.4 mg/dL (3.5-7.2)
[2023-03-03 15:16] LABS: INR 1.25 (0.8-3.0); PROTIME 13.4 SECONDS (9.4-12.5); PTT 25.1 SECONDS (25.1-36.5)
[2023-03-03 16:03] VITALS: BP 108/60; PULSE 86
--- NOTE | 2023-03-03 16:03 | ERPHSYRPT ---
- History of Present Illness Time Seen by Provider: 03/03/23 14:40 Source: patient, family Exam Limitations: no limitations Patient Subjective Stated Complaint: pt state last friday he was diagnosed with blood clots in his RLE. pt states increased pain to rt ankle foot Triage Nursing Assessment: pt ambulated into the er; pt is axo x4; c/o rt ankle/ foot pain; swelling present to rt foot; bruising present to rt foot and ankle; bruising present to rt thigh; strong rt pedal pulse; good cap refill to rt foot; vitals wnl Physician History: Patient is a 67-year-old white male who presents with a complaint of pain in the right ankle and bruising over most of the lower extremity on the right. He is on chronic Coumadin therapy for deep vein thrombosis diagnosed a year ago says he smacked his ankle on some metal outside 6 days ago and continues to bruise and swell and cause pain. He was seen in [facility] his x-ray there was read as no acute findings but an old injury to the malleolus there he also had a small popliteal clot and his Coumadin was increased. Method of Injury: direct blow Occurred: days ago (6) Quality: aching, throbbing Severity of Pain-Max: moderate Severity of Pain-Current: moderate Lower Extremities Pain: ankle: right Modifying Factors: Improves With: nothing Associated Symptoms: none Allergies/Adverse Reactions: Penicillins Allergy (Verified 03/03/23 14:24) Home Medications: Lisinopril 10 mg [Zestril 10 MG] 10 mg PO DAILY 04/22/22 [History] Warfarin Sodium 5 mg [Jantoven] 1 ea PO DAILY 04/22/22 [History] Aspirin 81 gm Chew [Baby Aspirin 81 mg Chew] 81 mg PO DAILY 03/03/23 [History] Atorvastatin Calcium [Lipitor 40Mg] 40 mg PO HS 03/03/23 [History] Metoprolol Succinate 25 mg Xl* [Toprol-Xl 25MG Tablets] 25 mg PO DAILY 03/03/23 [History] Warfarin Sodium 2.5 mg PO UD 03/03/23 [History] Hx Tetanus, Diphtheria Vaccination/Date Given: No Hx Influenza Vaccination/Date Given: No Hx Pneumococcal Vaccination/Date Given: No Travel Risk - International Travel Have you traveled outside of the country in past 3 weeks: No - Coronavirus Screening Are you exhibiting any of the following symptoms?: No Close contact with a COVID-19 positive Pt in past 14-21 Days: No - Vaccine Status Have you recieved a Covid-19 vaccination: Yes 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 - Vaccination Dates Date of 2cond Vaccination (if applicable): UNKNOWN - Review of Systems Constitutional: No Fever, No Chills Eyes: No Symptoms Ears, Nose, & Throat: No Symptoms Respiratory: No Cough, No Dyspnea Cardiac: No Chest Pain, No Edema, No Syncope Abdominal/Gastrointestinal: No Abdominal Pain, No Nausea, No Vomiting, No Diarrhea Genitourinary Symptoms: No Dysuria Musculoskeletal: No Back Pain, No Neck Pain Skin: No Rash Neurological: No Dizziness, No Focal Weakness, No Sensory Changes Psychological: No Symptoms Endocrine: No Symptoms All Other Systems: Reviewed and Negative - Past Medical History Pertinent Past Medical History: Yes Neurological History: No Pertinent History ENT History: No Pertinent History Cardiac History: Deep Vein Thrombosis, Hypertension Respiratory History: No Pertinent History Endocrine Medical History: No Pertinent History Musculoskeletal History: No Pertinent History GI Medical History: No Pertinent History History: No Pertinent History Psycho-Social History: No Pertinent History Male Reproductive Disorders: No Pertinent History - Past Surgical History Past Surgical History: Yes Neuro Surgical History: No Pertinent History Cardiac: No Pertinent History Respiratory: No Pertinent History Gastrointestinal: No Pertinent History Genitourinary: No Pertinent History Musculoskeletal: No Pertinent History Male Surgical History: No Pertinent History Other Surgical History: GASTRIC BYPASS IN 2004. BILATERAL KNEE REPLACEMENT IN 2 006 - Social History Smoking Status: Never smoker Exposure to second hand smoke: No Drug Use: none Patient Lives Alone: No - Nursing Vital Signs Nursing Vital Signs: Initial Vital Signs Temperature 97.9 F 03/03/23 14:30 Pulse Rate 63 03/03/23 14:30 Respiratory Rate 16 03/03/23 14:30 Blood Pressure 133/73 03/03/23 14:30 O2 Sat by Pulse Oximetry 97 03/03/23 14:30 Pain Scale Pain Intensity 10 - Physical Exam General Appearance: mild distress, alert Eyes, Ears, Nose, Throat Exam: moist mucous membranes Neck Exam: non-tender, supple Cardiovascular/Respiratory Exam: chest non-tender, normal breath sounds, regular rate/rhythm, no respiratory distress Gastrointestinal/Abdominal Exam: non-tender, guarding Back Exam: normal inspection, No vertebral tenderness Hips Exam: bilateral: non-tender, normal inspection, normal range of motion Legs Exam: right leg: ecchymosis, pain, soft tissue tenderness, swelling Knees Exam: bilateral knee: non-tender, normal inspection, normal range of motion Ankle Exam: right ankle: bone tenderness, ecchymosis, limited range of motion, pain, soft tissue tenderness Foot Exam: right foot: ecchymosis, limited range of motion, pain, soft tissue tenderness Neuro/Tendon Exam: normal sensation, normal motor functions Mental Status Exam: alert, oriented x 3, cooperative Skin Exam: normal color, warm, dry SpO2 Interpretation: normal SpO2: 94 O2 Delivery: Room Air Procedures - Splinting Location of Splint: Right, Ankle, Lower Leg Type of Splint: Walking Boot/Shoe Splint Applied By: ED Nurse Pre-Proc Neuro Vasc Exam: normal Post-Proc Neuro Vasc Exam: neurovascular intact - Course Nursing assessment & vital signs reviewed: Yes - Radiology Exams Right Ankle X-ray Interpretation: Reviewed by me Ordered Tests: Active Orders 24 hr Category Date Time Status ANKLE (3 VIEWS) Stat Exams 03/03/23 15:12 Taken CBC Stat Lab 03/03/23 14:33 Completed CMP Stat Lab 03/03/23 14:55 Completed PT INR [PROTIME WITH INR] Stat Lab 03/03/23 14:55 Completed PTT Stat Lab 03/03/23 14:55 Completed SED RATE [Erythrocyte Sedimentation Rate] Stat Lab 03/03/23 14:55 Received Uric Acid Stat Lab 03/03/23 14:55 Completed Lab/Rad Data: Laboratory Result Diagrams 03/03/23 14:33 03/03/23 14:55 Laboratory Results 03/03/23 03/03/23 03/03/23 Range/Units 14:55 14:55 14:33 WBC 6.7 (4.0-10.5) x10^3/uL RBC 4.21 (4.1-5.6) x10^6/uL Hgb 13.3 (12.5-18.0) g/dL Hct 42.3 (42-50) % MCV 100.5 H (78-100) fL MCH 31.6 (26-32) pg MCHC 31.4 L (32-36) g/dL RDW 13.4 (11.5-14.0) % Plt Count 212 (150-450) x10^3/uL MPV 8.6 (7.5-11.0) fL PT 13.4 H (9.4-12.5) SECONDS INR 1.25 (0.8-3.0) APTT 25.1 (25.1-36.5) SECONDS Sodium 138 (137-145) mmol/L Potassium 4.1 (3.5-5.1) mmol/L Chloride 105 (98-107) mmol/L Carbon Dioxide 26 (22-30) mmol/L Anion Gap 10.7 (5-15) MEQ/L BUN 25 H (9-20) mg/dL Creatinine 0.95 (0.66-1.25) mg/dL Estimated GFR > 60.0 ML/MIN Glucose 112 H (74-106) mg/dL Uric Acid 3.4 L (3.5-7.2) mg/dL Calcium 8.4 (8.4-10.2) mg/dL Total Bilirubin 1.10 (0.2-1.3) mg/dL AST 31 (17-59) U/L ALT 31 (0-50) U/L Alkaline Phosphatase 83 (38-126) U/L Serum Total Protein 5.9 L (6.3-8.2) g/dL Albumin 3.6 (3.5-5.0) g/dL - Progress Progress: unchanged Progress Note: 03/03/23 16:04 Patient's findings were discussed with the patient and it was agreed that he would go into a walking boot and states he the orthopedic clinic tomorrow morning. Feeling is that there was an old injury to that same malleolus some years ago which did not heal properly or there is a reinjury of that ankle. Medical Desision Making - Independent Historian Additional History obtained from: Spouse - External Record(s) Reviewed Records reviewed as a part of evaluation & management: Discharge Summary (Records from [place] were obtained and reviewed.) - Diagnostic Testing Diagnostic test were ordered, analyzed, and reviewed by me: Yes Radiological Interpretation: Reviewed by me - Risk of complications Low Risk: Low risk of morbidity from additional dx testing or treatment - Departure Departure Disposition: Home Clinical Impression: Right ankle injury Condition: Stable Critical Care Time: No Referrals: MEMBRENO,JOVITA SALVADOR Jr. [Primary Care Provider] - Follow up/PCP as directed Instructions: Ankle Fracture (DC)
--- NOTE | 2023-03-03 16:05 | XRAY ---
CLINICAL HISTORY:pain COMPARISON:None. TECHNIQUE:X-ray of right ankle AP, lateral, and oblique 3 views. FINDINGS: A radiological examination of the right ankle demonstrates a cortical break with sclerotic margins of the medial malleolus. Markedly reduced ankle joint space is seen medially with some subarticular sclerosis and lucencies, likely representing some subchondral tiny cuts. There is also evidence of generalized reduced bone density. A few tiny osteophytes are seen around the ankle joint. No dislocation was seen. No fracture or bony abnormality was seen. Soft tissues are normal. Fat planes are intact. IMPRESSION: 1. Cortical break with sclerotic margins of right medial malleolus, likely representing old healed fracture of medial malleolus of tibia. 2. 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 DISCLAIMER:A subtle bone abnormality or fracture may not be readily apparent on x-rays, thus clinical correlation and further imaging including follow up CT, MRI, or follow up x-rays are advised as needed. Electronically Signed by: Ghazal Soria MD. (03/03/2023 15:03:26 LIQUOR INSPECTOR)
== END 2023-03-03 16:27 | disposition home or self-care (01) ==
LOC: ED 13:27
DX: S99.911A Unspecified injury of right ankle, initial encounter (principal); W22.8XXA Striking against or struck by other objects, initial encounter; I10 Essential (primary) hypertension; Z79.01 Long term (current) use of anticoagulants; Z79.899 Other long term (current) drug therapy
CPT/HCPCS: 36415; 73610; 80053; 84550; 85027; 85610; 85652; 85730; 99283

== ENCOUNTER 2023-09-24 15:00 | Emergency (ER) | payer MEDICARE ==
[2023-09-24] MEDS ORDERED: Zofran 4 MG/2 ML VIAL ONE (15:16)
[2023-09-24] MEDS ORDERED: Hydromorphone 1 mg/ml Injection ONE (15:17)
[2023-09-24] MEDS: Hydromorphone 1 mg/ml Injection IV ONE (15:18)
[2023-09-24] MEDS: Zofran 4 MG/2 ML VIAL IV ONE (15:18)
[2023-09-24 15:32] VITALS: RESP 18; TEMP 98.4; O2SAT 94
--- NOTE | 2023-09-24 16:24 | XRAY ---
Indication: Pain and swelling. Comparison: None 3 portable views left knee demonstrates osteopenia, total knee arthroplasty with intact prosthesis, largest nonspecific effusion, minimal vascular calcifications, and mild medial subcutaneous venous varicosities. No other bony, articular, or soft tissue abnormalities.
--- NOTE | 2023-09-24 17:09 | ERPHSYRPT ---
- History of Present Illness Time Seen by Provider: 09/24/23 15:03 Source: patient, family Exam Limitations: no limitations Patient Subjective Stated Complaint: C/O left knee pain and swelling. Patient states he was sitting, eating lunch around 11:30am today when his knee started hurting and popped. Patient unable to ambulate due to severe pain in his left knee. Triage Nursing Assessment: Patient brought back to ER in a W/C. He required assistance of staff to transfer to the bed from the chair and was only able to toe-touch bear weight on LLE. He is alert and oriented. Left knee is swollen and tender to touch. Normal skin tone. Scar noted to both knees; states he had knee replacements in both knees years ago. Physician History: 68 years old male presented in the ER with complaint of left knee pain sudden onset around 11:30 AM today. Patient has history of total knee arthroplasty long time ago, was sitting and felt a popping sensation in the left knee followed by severe sharp shooting pain and swelling which is progressively worsening. Patient is unable to have any weightbearing. Denies any fall or trauma. Allergies/Adverse Reactions: Penicillins Allergy (Verified 09/24/23 15:09) Home Medications: Lisinopril 10 mg [Zestril 10 MG] 10 mg PO DAILY 04/22/22 [History] Warfarin Sodium 5 mg [Coumadin] 1 ea PO DAILY 04/22/22 [History] Aspirin 81 gm Chew [Baby Aspirin 81 mg Chew] 81 mg PO DAILY 03/03/23 [History] Atorvastatin Calcium [Lipitor 40Mg] 40 mg PO HS 03/03/23 [History] Metoprolol Succinate 25 mg Xl* [Toprol-Xl 25MG Tablets] 25 mg PO DAILY 03/03/23 [History] Warfarin Sodium 2.5 mg PO UD 03/03/23 [History] Hx Tetanus, Diphtheria Vaccination/Date Given: Yes Hx Influenza Vaccination/Date Given: No Hx Pneumococcal Vaccination/Date Given: No Immunizations Up to Date: Yes Travel Risk - International Travel Have you traveled outside of the country in past 3 weeks: No - Emerging Infectious Disease Are you exhibiting symptoms associated with any current EIDs: No - Review of Systems Constitutional: No Symptoms Ears, Nose, & Throat: No Symptoms Respiratory: No Symptoms Cardiac: No Symptoms Abdominal/Gastrointestinal: No Symptoms Genitourinary Symptoms: No Symptoms Musculoskeletal: Joint Pain, Joint Swelling Skin: No Symptoms Neurological: No Symptoms - Past Medical History Pertinent Past Medical History: Yes Neurological History: No Pertinent History ENT History: No Pertinent History Cardiac History: Deep Vein Thrombosis, High Cholesterol, Hypertension Respiratory History: No Pertinent History Endocrine Medical History: No Pertinent History Musculoskeletal History: Arthritis GI Medical History: No Pertinent History History: No Pertinent History Psycho-Social History: No Pertinent History Male Reproductive Disorders: No Pertinent History - Past Surgical History Past Surgical History: Yes Neuro Surgical History: No Pertinent History Cardiac: No Pertinent History Respiratory: No Pertinent History Gastrointestinal: No Pertinent History Genitourinary: No Pertinent History Musculoskeletal: No Pertinent History Male Surgical History: No Pertinent History Other Surgical History: GASTRIC BYPASS IN 2003, BILATERAL KNEE REPLACEMENT IN 2005 - Social History Smoking Status: Never smoker Exposure to second hand smoke: No Drug Use: none Patient Lives Alone: No - Nursing Vital Signs Nursing Vital Signs: Initial Vital Signs Temperature 98.4 F 09/24/23 15:10 Pulse Rate 76 09/24/23 15:10 Respiratory Rate 18 09/24/23 15:10 Blood Pressure 141/90 09/24/23 15:10 O2 Sat by Pulse Oximetry 98 09/24/23 15:10 Pain Scale Pain Intensity 10 - Physical Exam General Appearance: mild distress, alert Neck Exam: normal inspection, full range of motion Cardiovascular/Respiratory Exam: normal breath sounds, regular rate/rhythm Legs Exam: bilateral leg: non-tender, normal inspection, normal range of motion, no evidence of injury Knees Exam: right knee: non-tender, normal inspection, normal range of motion, no evidence of injury, left knee: joint effusion, pain, soft tissue tenderness, swelling Ankle Exam: bilateral ankle: non-tender, normal inspection, normal range of motion, no evidence of injury Neuro/Tendon Exam: normal sensation Mental Status Exam: alert, cooperative Skin Exam: normal color SpO2 Interpretation: normal SpO2: 94 O2 Delivery: Room Air Ordered Tests: Active Orders 24 hr Category Date Time Status Osmin Bandage Application -[facility] STAT Care 09/24/23 17:48 Completed IV Insertion STAT Care 09/24/23 15:26 Completed KNEE (3 VIEWS) Stat Exams 09/24/23 15:07 Completed Medication Summary Discontinued Medications Generic Name Dose Route Start Last Admin Trade Name Freq PRN Reason Stop Dose Admin Hydromorphone HCl 1 mg 09/24/23 15:15 09/24/23 15:18 Hydromorphone 1 Mg/1ml Inj IV 09/24/23 15:16 1 mg STAT ONE Administration Hydromorphone HCl Confirm 09/24/23 15:17 Hydromorphone 1 Mg/1ml Inj Administered 09/24/23 15:18 Dose 1 mg .ROUTE .STK-MED ONE Ondansetron HCl 4 mg 09/24/23 15:15 09/24/23 15:18 Ondansetron Hcl 4 Mg/2 Ml Vial IV 09/24/23 15:16 4 mg STAT ONE Administration Ondansetron HCl Confirm 09/24/23 15:16 Ondansetron Hcl 4 Mg/2 Ml Vial Administered 09/24/23 15:17 Dose 4 mg .ROUTE .STK-MED ONE - Progress Progress: improved, pain not gone completely, re-examined Progress Note: 09/24/23 17:05 68-year-old is evaluated for left knee pain and swelling sudden onset few hours ago with a popping sensation. Patient was in moderate to severe pain on presentation. He is given IV pain medication. X-rays show hardware in place with no fracture dislocation/subluxation of patella but a large effusion. Discussed with Dr. Gan orthopedics, recommended Osmin wrap, pain medication, walker for ambulation and outpatient follow-up with orthopedics in the morning. Plan discussed with patient and family who understand and agree with it. Recommended intermittent ice application and keeping it elevated 09/24/23 17:[address] Other (Dr. Gan orthopedics) Counseled pt/family regarding: diagnosis, need for follow-up, rad results Medical Desision Making - Independent Historian Additional History obtained from: Child - Discussion of managment Care discussed with:: specialist (Dr. Gan orthopedics) Reviewed:: Test results Agreed on:: Treatment plan Will see patient: In office - Diagnostic Testing Diagnostic test were ordered, analyzed, and reviewed by me: Yes Radiological Interpretation: Reviewed by me - Risk of complications The pt has a mod risk of morbidity or mortality based on: Need for prescription drug management - Departure Departure Disposition: Home Clinical Impression: Knee sprain, Knee effusion, left Condition: Stable Critical Care Time: No Referrals: JOVITA MEMBRENO Jr. [Primary Care Provider] - Follow up with PCP 1 day NEGRITO PARISH MD [ACTIVE STAFF] - Follow up/PCP as directed (tomorrow for reevaluation) Instructions: Knee Sprain (DC) Additional Instructions: Use walker for ambulation. Intermittent ice application. Take pain medications as needed. Follow-up with orthopedics for reevaluation in the morning. Return to ER for any worsening. Prescriptions: Hydrocodone/Acetaminophen [Hydrocodone-Acetamin 7.5-325] 1 each PO Q6HPRN PRN 3 Days #12 tablet MDD 4 PRN Reason: Pain
[2023-09-24 17:22] VITALS: BP 128/79; PULSE 70
== END 2023-09-24 18:00 | disposition home or self-care (01) ==
LOC: ED 15:00
DX: S83.92XA Sprain of unspecified site of left knee, initial encounter (principal); M25.462 Effusion, left knee; E78.5 Hyperlipidemia, unspecified; I10 Essential (primary) hypertension; Z79.01 Long term (current) use of anticoagulants; Z79.899 Other long term (current) drug therapy
CPT/HCPCS: 36000; 73562; 96374; 96375; 99284; J1170; J2405

== ENCOUNTER 2024-02-13 15:12 | Emergency (ER) | payer MEDICARE ==
--- NOTE | 2024-02-13 15:17 | ERPHSYRPT ---
- History of Present Illness Time Seen by Provider: 02/13/24 15:17 Source: patient Exam Limitations: no limitations Physician History: This is a 68-year-old white male patient who presents to the emergency department with 2 large left forearm dorsal aspect skin tears. They occurred 2 days ago. Patient had lost his balance and leaned into the door frame causing the skin tears to occur. Patient is on clindamycin antibiotics for 10 days. Patient is also on warfarin. He has a history of hypertension hyperlipidemia. He thinks his tetanus status is up-to-date. Timing/Duration: day(s) (2) Quality: painful Severity: mild Location: extremities (Moderate dorsal aspect left forearm) Associated Symptoms: denies symptoms Allergies/Adverse Reactions: Penicillins Allergy (Verified 02/13/24 15:27) Home Medications: Lisinopril 10 mg [Zestril 10 MG] 10 mg PO DAILY 04/22/22 [History] Warfarin Sodium 5 mg [Coumadin] 1 ea PO UD 04/22/22 [History] Atorvastatin Calcium [Lipitor 40Mg] 40 mg PO HS 03/03/23 [History] Metoprolol Succinate 25 mg Xl* [Toprol-Xl 25MG Tablets] 25 mg PO DAILY 03/03/23 [History] Warfarin Sodium 2.5 mg PO UD 03/03/23 [History] Hx Tetanus, Diphtheria Vaccination/Date Given: Yes Hx Influenza Vaccination/Date Given: No Hx Pneumococcal Vaccination/Date Given: No Travel Risk - International Travel Have you traveled outside of the country in past 3 weeks: No - Emerging Infectious Disease Are you exhibiting symptoms associated with any current EIDs: No - Review of Systems Constitutional: No Symptoms Eyes: No Symptoms Ears, Nose, & Throat: No Symptoms Respiratory: No Symptoms Cardiac: No Symptoms Abdominal/Gastrointestinal: No Symptoms Genitourinary Symptoms: No Symptoms Musculoskeletal: No Symptoms Skin: Other (Skin tears x 2 left forearm dorsal aspect) Neurological: No Symptoms Psychological: No Symptoms Endocrine: No Symptoms Hematologic/Lymphatic: No Symptoms Immunological/Allergic: No Symptoms All Other Systems: Reviewed and Negative - Past Medical History Pertinent Past Medical History: Yes Neurological History: No Pertinent History ENT History: No Pertinent History Cardiac History: Deep Vein Thrombosis, High Cholesterol, Hypertension Respiratory History: No Pertinent History Endocrine Medical History: No Pertinent History Musculoskeletal History: Arthritis GI Medical History: No Pertinent History History: No Pertinent History Psycho-Social History: No Pertinent History Male Reproductive Disorders: No Pertinent History - Past Surgical History Past Surgical History: Yes Neuro Surgical History: No Pertinent History Cardiac: No Pertinent History Respiratory: No Pertinent History Gastrointestinal: No Pertinent History Genitourinary: No Pertinent History Musculoskeletal: No Pertinent History Male Surgical History: No Pertinent History Other Surgical History: GASTRIC BYPASS IN 2004, BILATERAL KNEE REPLACEMENT IN 2006 - Social History Smoking Status: Never smoker Exposure to second hand smoke: No Drug Use: none Patient Lives Alone: No - Social Determinants of Health Will the patient participate in the screening: Declined to provide - Nursing Vital Signs Nursing Vital Signs: Initial Vital Signs Temperature 98.3 F 02/13/24 15:18 Pulse Rate 68 02/13/24 15:18 Blood Pressure 145/89 02/13/24 15:18 O2 Sat by Pulse Oximetry 96 02/13/24 15:18 Pain Scale Pain Intensity 7 - Physical Exam General Appearance: no apparent distress, alert, anxiety Eye Exam: PERRL/EOMI, eyes nml inspection Ears, Nose, Throat Exam: normal ENT inspection, moist mucous membranes Neck Exam: normal inspection, non-tender, supple, full range of motion Respiratory Exam: airway intact, No chest tenderness, No respiratory distress Gastrointestinal/Abdomen Exam: No tenderness Rectal Exam: not done Back Exam: normal inspection, normal range of motion, No CVA tenderness, No vertebral tenderness Extremity Exam: normal range of motion, pelvis stable, tenderness (In the areas of 2 separate skin tears. One measuring 10 cm x 4 cm with no active bleeding. The second one 3 cm x 5 cm. Both are on the dorsal aspect of the left forearm) Neurologic Exam: alert, oriented x 3, cooperative, bath mixer II-XII nml as tested, nml cerebellar function, nml station & gait, sensation nml Skin Exam: other (See above description in the extremity exam section) Lymphatic Exam: No adenopathy SpO2 Interpretation: normal O2 Delivery: Room Air - Course Nursing assessment & vital signs reviewed: Yes - Progress Progress: improved, pain not gone completely Progress Note: 02/13/24 15:41 My medical decision making and the assignment of low complexity to this patient's medical issue today is based on review of the patient's past medical history, review of the patient's medication list, review of patient drug allergy list, history present illness and physical findings on examination. No radiographic or laboratory studies are necessary in this patient. 02/13/24 15:46 Patient states that he is out of his hydrocodone 7.5/325 mg pain pills. Counseled pt/family regarding: diagnosis, need for follow-up Medical Desision Making - Diagnostic Testing Diagnostic test were ordered, analyzed, and reviewed by me: No - Risk of complications The pt has a mod risk of morbidity or mortality based on: Need for prescription drug management - Departure Departure Disposition: Home Clinical Impression: Skin tear of forearm without complication Condition: Stable Critical Care Time: No Referrals: JOVITA MEMBRENO Jr. [Primary Care Provider] - Follow up/PCP as directed Additional Instructions: Follow the nurses instructions for skin tear care. As discussed, when you take the dressing off and shower allow the soap and water to run over the site. Blot dry use a academic department chair and recover with antibiotic ointment of choice and dressings that are nonstick dressings. Change 1-2 times daily. Continue your antibiotics as prescribed. Clindamycin should also provide prophylaxis for skin bacteria. Call your primary care provider on 02/16/2024, to make arrangements for a follow-up visit in the next 3 to 5 days. Prescriptions: Hydrocodone/Acetaminophen [Hydrocodone-Acetamin 7.5-325] 1 each PO Q8H PRN #9 tablet MDD 3 PRN Reason: Moderate To Severe Pain
[2024-02-13 15:27] VITALS: BP 145/89; PULSE 68; TEMP 98.3; O2SAT 96
[2024-02-13] MEDS ORDERED: Adacel Vial IM ONE (15:58)
[2024-02-13] MEDS: Adacel Vial IM ONE (16:01)
== END 2024-02-13 16:04 | disposition home or self-care (01) ==
LOC: ED 15:12
DX: S51.812A Laceration without foreign body of left forearm, initial encounter (principal); W22.01XA Walked into wall, initial encounter; I10 Essential (primary) hypertension; E78.5 Hyperlipidemia, unspecified; Z79.01 Long term (current) use of anticoagulants; Z79.891 Long term (current) use of opiate analgesic; Z79.899 Other long term (current) drug therapy; Z23 Encounter for immunization
CPT/HCPCS: 90471; 90715; 99282

== ENCOUNTER 2024-05-06 08:08 | Emergency (ER) | payer MEDICARE ==
[2024-05-06 08:26] VITALS: PULSE 64; RESP 18; TEMP 97.2; O2SAT 95
[2024-05-06] MEDS ORDERED: Cyclobenzaprine 10 MG ONE (08:49)
[2024-05-06] MEDS: Cyclobenzaprine 10 MG PO ONE (08:50)
[2024-05-06] MEDS ORDERED: MORPHINE SULFATE 4 MG INJ ONE ×2 (08:50→10:54)
[2024-05-06] MEDS: MORPHINE SULFATE 4 MG INJ IM ONE ×2 (08:50→10:56)
--- NOTE | 2024-05-06 10:09 | ERPHSYRPT ---
- History of Present Illness Time Seen by Provider: 05/06/24 08:10 Source: patient, family, EMS Exam Limitations: no limitations Patient Subjective Stated Complaint: Lower back pain Triage Nursing Assessment: Pt brought to ER by EMS, vitals wnl, Pain 6/10, pulses normal, denies injury, skin n/w/d, no difficulty breathing, sitting in chair last night and when he got up he couldn't move and had pain, doesn't appear to be in any distress. Physician History: 69-year-old male with history of chronic back pain on hydrocodone presented to the ER with sudden worsening back pain since yesterday evening while he was sitting on a chair for a while and after that he could not get up because of the pain. Pain is moderate to severe sharp shooting across low back with minimal radiation to lower extremities. Denies any numbness tingling or weakness of lower extremities, no loss of bowel or bladder control. Denies any fall or trauma. Allergies/Adverse Reactions: Penicillins Allergy (Verified 05/06/24 08:22) Home Medications: Lisinopril 10 mg [Zestril 10 MG] 10 mg PO DAILY 04/22/22 [History] Warfarin Sodium 5 mg [Coumadin] 1 ea PO UD 04/22/22 [History] Atorvastatin Calcium [Lipitor 40Mg] 40 mg PO HS 03/03/23 [History] Metoprolol Succinate 25 mg Xl* [Toprol-Xl 25MG Tablets] 25 mg PO DAILY 03/03/23 [History] Warfarin Sodium 2.5 mg PO UD 03/03/23 [History] Hx Tetanus, Diphtheria Vaccination/Date Given: Yes Hx Influenza Vaccination/Date Given: No Hx Pneumococcal Vaccination/Date Given: No Travel Risk - International Travel Have you traveled outside of the country in past 3 weeks: No - Emerging Infectious Disease Are you exhibiting symptoms associated with any current EIDs: No - Review of Systems Constitutional: No Symptoms Ears, Nose, & Throat: No Symptoms Respiratory: No Symptoms Cardiac: No Symptoms Abdominal/Gastrointestinal: No Symptoms Genitourinary Symptoms: No Symptoms Musculoskeletal: Back Pain Skin: No Symptoms Neurological: No Symptoms Psychological: No Symptoms Endocrine: No Symptoms - Past Medical History Pertinent Past Medical History: Yes Neurological History: No Pertinent History ENT History: No Pertinent History Cardiac History: Deep Vein Thrombosis, High Cholesterol, Hypertension Respiratory History: No Pertinent History Endocrine Medical History: No Pertinent History Musculoskeletal History: Arthritis GI Medical History: No Pertinent History History: No Pertinent History Psycho-Social History: No Pertinent History Male Reproductive Disorders: No Pertinent History - Past Surgical History Past Surgical History: Yes Neuro Surgical History: No Pertinent History Cardiac: No Pertinent History Respiratory: No Pertinent History Gastrointestinal: No Pertinent History Genitourinary: No Pertinent History Musculoskeletal: No Pertinent History Male Surgical History: No Pertinent History Other Surgical History: GASTRIC BYPASS IN 2004, BILATERAL KNEE REPLACEMENT IN 2006 - Social History Smoking Status: Never smoker Exposure to second hand smoke: No Drug Use: marijuana Patient Lives Alone: No - Social Determinants of Health Will the patient participate in the screening: Yes Do you worry about a steady place to live?: No Do you have any problems with any of the following?: No known problems In the past 12 months,have you had to go without utilities?: No Transportation Issues: No Has anyone in your support network made you feel unsafe?: No Have you or anyone in your house had to go without enough: No - Nursing Vital Signs Nursing Vital Signs: Initial Vital Signs Temperature 97.2 F 05/06/24 08:09 Pulse Rate 64 05/06/24 08:09 Respiratory Rate 18 05/06/24 08:09 Blood Pressure 116/71 05/06/24 08:09 O2 Sat by Pulse Oximetry 95 05/06/24 08:09 Pain Scale Pain Intensity [Lower Back] 6 Pain Intensity 6 - Physical Exam General Appearance: no apparent distress Eye Exam: PERRL/EOMI Ears, Nose, Throat Exam: moist mucous membranes Neck Exam: normal inspection, full range of motion Respiratory Exam: normal breath sounds, lungs clear Cardiovascular Exam: regular rate/rhythm, normal heart sounds Gastrointestinal Exam: soft, normal bowel sounds, No tenderness Back Exam: normal inspection, decreased range of motion, muscle spasm, point tenderness (Minimal lower lumbar tenderness, tenderness across low back and sacroiliac area. Straight leg raising test positive at 30 degrees on both. Plantars downgoing bilaterally. 2+ symmetric knee reflexes.) Extremity Exam: normal inspection, normal range of motion Neurologic Exam: alert, oriented x 3, cooperative, normal mood/affect, sensation nml, No motor deficits Skin Exam: normal color SpO2 Interpretation: normal SpO2: 95 O2 Delivery: Room Air Ordered Tests: Active Orders 24 hr Category Date Time Status LUMBAR SPINE W/O [CT] Stat Exams 05/06/24 08:40 Completed Medication Summary Discontinued Medications Generic Name Dose Route Start Last Admin Trade Name Amina PRN Reason Stop Dose Admin Cyclobenzaprine HCl 10 mg 05/06/24 08:40 05/06/24 08:50 Cyclobenzaprine Hcl 10 Mg Tablet PO 05/06/24 08:41 10 mg STAT ONE Administration Cyclobenzaprine HCl Confirm 05/06/24 08:49 Cyclobenzaprine Hcl 10 Mg Tablet Administered 05/06/24 08:50 Dose 10 mg .ROUTE .STK-MED ONE Morphine Sulfate 4 mg 05/06/24 08:40 05/06/24 08:50 Morphine Sulfate 4 Mg/Ml Injection IM 05/06/24 08:41 4 mg STAT ONE Administration Morphine Sulfate Confirm 05/06/24 08:50 Morphine Sulfate 4 Mg/Ml Injection Administered 05/06/24 08:51 Dose 4 mg .ROUTE .STK-MED ONE Morphine Sulfate 4 mg 05/06/24 10:52 05/06/24 10:56 Morphine Sulfate 4 Mg/Ml Injection IM 05/06/24 10:53 4 mg STAT ONE Administration Morphine Sulfate Confirm 05/06/24 10:54 Morphine Sulfate 4 Mg/Ml Injection Administered 05/06/24 10:55 Dose 4 mg .ROUTE .STK-MED ONE - Progress Progress: improved, re-examined Progress Note: 05/06/24 12:02 69-year-old is evaluated in ER for low back pain. Patient has no cauda equina symptoms. Negative neuroexam in lower extremities. He is given symptomatic treatment with morphine and Flexeril, on reevaluation patient is feeling much improved. He was able to ambulate in the ER. I have obtained CT lumbar spine which showed degenerative changes but no obvious fracture subluxation or obvious impingement/broad-based disc bulge/retropulsion. I believe patient has acute on chronic exacerbation of low back pain, I would continue with hydrocodone's which she has at home and will give Flexeril along with it. Recommended outpatient follow-up with primary care for reevaluation and may need referral for pain management if does not feel much improvement. Discussed the results of workup and also signs symptoms of worsening needing return to ER which patien t/family seem understanding. Stable for discharge. Counseled pt/family regarding: diagnosis, need for follow-up, rad results Medical Desision Making - Independent Historian Additional History obtained from: Spouse, [employer] Roller/EMT - Diagnostic Testing Diagnostic test were ordered, analyzed, and reviewed by me: Yes Radiological Interpretation: Reviewed by me - Risk of complications The pt has a mod risk of morbidity or mortality based on: Need for prescription drug management - Departure Departure Disposition: Home Clinical Impression: Acute exacerbation of chronic low back pain Condition: Stable Critical Care Time: No Referrals: JOVITA MEMBRENO Jr. [Primary Care Provider] - Follow up with PCP 1 day Instructions: Low Back Pain (DC) Additional Instructions: Continue with your current pain medications. Use cane/walker for ambulation to avoid a fall. Follow-up with primary care for reevaluation in 1 to 2 days. Return to ER for intractable pain, numbness tingling weakness of lower extremities/saddle anesthesia/loss of bowel or bladder control etc. Prescriptions: Cyclobenzaprine HCl 10 mg [Flexeril 10 MG] 5 mg PO BID 5 Days #10 tablet
--- NOTE | 2024-05-06 10:16 | XRAY ---
Indication: Low back pain. Multiple contiguous images obtained through the lumbar spine appears sagittal and coronal reformatted images obtained. Comparison: None Osseous structures demineralized. Small L2-L3 opposing endplate Schmorl nodes. Minimal/mild L3-S1 broad-based disc osteophyte complex with bilateral degenerative facet hypertrophy producing bilateral foraminal stenosis. No obvious large disc herniation or spinal canal stenosis. Also moderate multilevel anterior endplate spurring. Sagittal and coronal reformatted images demonstrates normal lumbar lordosis with minimal levoscoliosis centered at L3. L5-S1 disc space loss with lesser L3-L5 disc space narrowing. No acute compression fracture or sublocation. Visualized noncontrasted soft tissues demonstrates nonobstructing bilateral renal micro-calculi, 2.4 cm right mid renal cyst, and mild scattered aortoiliac calcifications. Impression: Chronic findings including osteopenia, L3-S1 degenerative disc disease, levoscoliosis, L2/L3 Schmorl nodes, nonobstructing bilateral renal micro-calculi, right renal cyst, and arteriosclerotic disease. No acute findings.
[2024-05-06 10:54] VITALS: BP 114/75
== END 2024-05-06 12:40 | disposition home or self-care (01) ==
LOC: ED 08:08
DX: M54.50 Low back pain, unspecified (principal)
CPT/HCPCS: 72131; 96372; 99283; 99284; J2270; A9270-GY

== ENCOUNTER 2025-04-08 08:19 | Emergency (ER) | payer MEDICARE ==
--- NOTE | 2025-04-08 08:23 | ERPHSYRPT ---
- History of Present Illness Time Seen by Provider: 04/08/25 08:22 Source: patient, family Exam Limitations: no limitations Physician History: This is a 70-year-old white male patient who arrives for private vehicle and is a patient Dr. Wood with the complaint of skin tear to the left upper extremity/forearm. Patient lost his balance and fell to the ground with superficial skin tears. The patient has very thin skin and is on Coumadin. Patient has history of hypertension and hyperlipidemia. His tetanus status is up-to-date. Occurred: this morning Method of Injury: fell Quality: burning Severity of Pain-Max: mild Severity of Pain-Current: mild Extremities Pain Location: forearm: left Modifying Factors: Improves With: nothing Associated Symptoms: none Allergies/Adverse Reactions: Penicillins Allergy (Verified 04/08/25 08:32) Home Medications: Lisinopril 10 mg [Zestril 10 MG] 10 mg PO DAILY 04/22/22 [History] Warfarin Sodium 5 mg [Coumadin] 1 ea PO UD 04/22/22 [History] Atorvastatin Calcium [Lipitor 40Mg] 40 mg PO HS 03/03/23 [History] Metoprolol Succinate 25 mg Xl* [Toprol-Xl 25MG Tablets] 25 mg PO DAILY 03/03/23 [History] Warfarin Sodium 2.5 mg PO UD 03/03/23 [History] Hx Tetanus, Diphtheria Vaccination/Date Given: Yes Hx Influenza Vaccination/Date Given: No Hx Pneumococcal Vaccination/Date Given: No Travel Risk - International Travel Have you traveled outside of the country in past 3 weeks: No - Emerging Infectious Disease Are you exhibiting symptoms associated with any current EIDs: No - Review of Systems Constitutional: No Symptoms Eyes: No Symptoms Ears, Nose, & Throat: No Symptoms Respiratory: No Symptoms Cardiac: No Symptoms Abdominal/Gastrointestinal: No Symptoms Genitourinary Symptoms: No Symptoms Musculoskeletal: No Symptoms Skin: Other (15 cm skin tear left dorsal forearm) Neurological: No Symptoms Psychological: No Symptoms Endocrine: No Symptoms Hematologic/Lymphatic: No Symptoms Immunological/Allergic: No Symptoms All Other Systems: Reviewed and Negative - Past Medical History Pertinent Past Medical History: Yes Neurological History: No Pertinent History ENT History: No Pertinent History Cardiac History: Deep Vein Thrombosis, High Cholesterol, Hypertension Respiratory History: No Pertinent History Endocrine Medical History: No Pertinent History Musculoskeletal History: Arthritis GI Medical History: No Pertinent History History: No Pertinent History Psycho-Social History: No Pertinent History Male Reproductive Disorders: No Pertinent History - Past Surgical History Past Surgical History: Yes Neuro Surgical History: No Pertinent History Cardiac: No Pertinent History Respiratory: No Pertinent History Gastrointestinal: No Pertinent History Genitourinary: No Pertinent History Musculoskeletal: No Pertinent History Male Surgical History: No Pertinent History Other Surgical History: GASTRIC BYPASS IN 2003, BILATERAL KNEE REPLACEMENT IN 10 12 - Social History Smoking Status: Never smoker Exposure to second hand smoke: No Drug Use: marijuana Patient Lives Alone: No - Social Determinants of Health Will the patient participate in the screening: Yes Do you worry about a steady place to live?: No In the past 12 months,have you had to go without utilities?: No Transportation Issues: No Has anyone in your support network made you feel unsafe?: No Have you or anyone in your house had to go w/o enough food: No - Nursing Vital Signs Nursing Vital Signs: Initial Vital Signs Temperature 97.7 F 04/08/25 08:19 Pulse Rate 66 04/08/25 08:19 Respiratory Rate 16 04/08/25 08:19 Blood Pressure 163/95 04/08/25 08:19 O2 Sat by Pulse Oximetry 95 04/08/25 08:19 Pain Scale Pain Intensity 8 - Physical Exam General Appearance: no apparent distress, alert, anxiety Eyes, Ears, Nose, Throat Exam: normal ENT inspection, moist mucous membranes Neck Exam: normal inspection, non-tender, supple, full range of motion Cardiovascular/Respiratory Exam: chest non-tender, no respiratory distress Abdominal Exam: non-tender Back Exam: normal inspection, normal range of motion, No CVA tenderness, No vertebral tenderness Shoulder Exam: normal inspection, non-tender, no evidence of injury, normal ROM Elbow/Forearm Exam: soft tissue tenderness (Skin tear proximately 15 cm in total length. No active bleeding. Nothing to surgically repair. No lacerations) Wrist Exam: normal inspection, non-tender, no evidence of injury, normal ROM Hand Exam: normal inspection, non-tender, no evidence of injury, normal ROM Neuro/Tendon Exam: normal sensation, normal motor functions, normal tendon functions, responds to pain, no evidence tendon injury Mental Status Exam: alert, oriented x 3, cooperative Skin Exam: other (Skin tear see above forearm section) SpO2 Interpretation: normal O2 Delivery: Room Air Procedures - Additional Procedures Progress: Timeout was performed on 04/08/2025 at 08 45. The area was prepped with skin tac pads. 1/2 inch Steri-Strips were used to approximate closely the 15 cm skin tear dorsal aspect left forearm. There were no complications. Patient tolerated the procedure well. The emergency department nurse then placed a nonstick gauze, Curlex and Coban. - Course Nursing assessment & vital signs reviewed: Yes - Progress Progress: improved, pain not gone completely, re-examined Progress Note: 04/08/25 09:07 My medical decision making and the assignment of low complexity of this patient's medical issue today is based on review of the patient's past medical history, review the patient's medication list, reviewed patient drug allergy list, history present illness and physical findings on examination. No laboratory radiographic studies are necessary in this patient's workup. Differential diagnosis includes but is not limited to contusion left forearm, skin tear left forearm, abrasion left forearm, laceration left forearm Counseled pt/family regarding: diagnosis, need for follow-up Medical Desision Making - Diagnostic Testing Diagnostic test were ordered, analyzed, and reviewed by me: No - Risk of complications Low Risk: Low risk of morbidity from additional dx testing or treatment - Departure Clinical Impression: Skin tear of left forearm without complication Condition: Stable Critical Care Time: No Referrals: JOVITA MEMBRENO Jr. [Primary Care Provider, UNKNOWN] - Follow up/PCP as directed Additional Instructions: Keep the current bandage in place until the evening of 04/09/2025. At that time you may remove all the bandages and rinse the site off with soapy water. Do not rub or scrub the site. Leave the Steri-Strips in place until they fall off on their own. Do not apply ointments or to the site.
[2025-04-08 08:31] VITALS: TEMP 97.7
[2025-04-08 09:21] VITALS: BP 155/100; PULSE 62; RESP 18; O2SAT 97
== END 2025-04-08 09:25 | disposition home or self-care (01) ==
LOC: ED 08:19
DX: S51.812A Laceration without foreign body of left forearm, initial encounter (principal); W01.0XXA Fall on same level from slipping, tripping and stumbling without subsequent striking against object, initial encounter; I10 Essential (primary) hypertension; Z79.01 Long term (current) use of anticoagulants; Z79.899 Other long term (current) drug therapy